=== PATIENT | female | born 1980 | race Caucasian/White ===

== ENCOUNTER → 2017-03-17 | Outpatient (CLI) | payer OTHER | LOC: FIMAGING 09:18 | PROVIDERS: ATTEND Advanced Practice Midwife | DX: O09.511 Supervision of elderly primigravida, first trimester (principal); Z3A.11 11 weeks gestation of pregnancy ==

== ENCOUNTER → 2017-06-05 | Outpatient (CLI) | payer OTHER | LOC: FIMAGING 07:43 | PROVIDERS: ATTEND Advanced Practice Midwife | DX: O36.5920 Maternal care for other known or suspected poor fetal growth, second trimester, not applicable or unspecified (principal); Z3A.23 23 weeks gestation of pregnancy; O26.892 Other specified pregnancy related conditions, second trimester; M02.30 Reiter's disease, unspecified site ==

== ENCOUNTER → 2017-06-24 | Outpatient (CLI) | payer OTHER | LOC: FIMAGING 09:08 | PROVIDERS: ATTEND Advanced Practice Midwife | DX: O36.5920 Maternal care for other known or suspected poor fetal growth, second trimester, not applicable or unspecified (principal); O26.892 Other specified pregnancy related conditions, second trimester; M47.9 Spondylosis, unspecified; M19.90 Unspecified osteoarthritis, unspecified site; Z3A.26 26 weeks gestation of pregnancy ==

== ENCOUNTER 2017-09-16 19:09 | Inpatient (IN) | payer OTHER ==
--- NOTE | 2017-09-16 21:20 | PDGENHP ---
History and Physical History and Physical: CARE: [facility], [place] HPI: Patient is a 37 yo who presents to L&D with complaints for IOL 2/2 symptomatic cholestasis with bile acids level 11.4. She has also been followed for IUGR - last growth US at 36 weeks was 6% with normal dopplers. Reports good activity - denies cntx/LOF/VB. EDC: 09/28/17 which is based on LMP: 12/22/16 which is known and consistent with Ultrasound at 7 weeks. Her is complicated by: - AMA - IUGR - Reactive arthritis/spondylo-arthropathy -followed by rheumatology (stopped Cimzia at 30 weeks) - Cholestasis Review of Systems: Constitutional: Denies any fever, chills, or fatigue HEENT: denies any visual changes, difficulty swallowing, hearing loss Cardiovascular: Denies any chest pain, palpitations, leg swelling Respiratory: denies any cough, wheezing, or shortness of breathe GI: Denies any nausea, vomiting, diarrhea, constipation : denies any dysuria, urgency, frequency, vaginal bleeding Musculoskeletal: denies any muscle or bone pain Skin: denies any rashes Neuro: denies any headache, seizures, lightheadedness, dizziness, or loss of consciousness Psychiatric: denies any depression, anxiety, or SI/HI thoughts HISTORY: Previous OB history: none Past medical history: reactive arthritis/spondylo-arthropathy, Past surgical history: non-contributory Medications: PNV Allergies (list reaction): NKDA LABS: Rh: O pos ABS: Neg Rubella: Immune HbsAg: NR HIV: NR VDRL: NR 1hr: 90 GC: Neg Chlamydia: Neg Pap: Normal GBS: neg BMI: (prepreg) 27 PHYSICAL EXAM: Constitutional: WN, A&Ox3 HEENT: normocephalic atraumatic, supple Heart: RRR, no murmur Chest: CTA-B Abdomen: Soft, nontender, gravid SVE: ft/50/-3 Extremities: sml pedal edema, negative anastasiia's sign Neuro: grossly normal Psych: normal affect assessment: Reassuring FHTs, baseline 135, +accels, no decels, moderate variability Contractions: toco irregular mild contractions Assessment: 1) 37 yo G 1 P 0 with IUP@ 38.2 weeks ega 2) IOL for cholestasis 3) GBS neg 4) Cat 1 FHR tracing 5) BPs since admission 130s/80s - denies headaches, visual changes, epigastric pain or increased pedal edema Plan: 1) Admit to L&D 2) Will place Cook catheter and plan for pitocin in AM 3) Pain relief as patient desires 4) Will check PIH labs due to elevated BPs 5) Continuous EFM
[2017-09-16] MEDS ORDERED: EPSOM SALT 454 GM TP PRN (21:33)
[2017-09-16] MEDS ORDERED: MISOPROSTOL 200 MCG TAB PO PRN (21:33)
[2017-09-16] MEDS ORDERED: IBUPROFEN 600 MG TAB PO PRN (21:33)
[2017-09-16] MEDS ORDERED: LIDOCAINE 1% 300 MG/30 ML SDV SC PRN (21:33)
[2017-09-16] MEDS ORDERED: TERBUTALINE SULFATE 1 MG/ML VIAL IV PRN (21:33)
[2017-09-16] MEDS ORDERED: LR 1,000 ML IV PRN (21:33)
[2017-09-16] MEDS ORDERED: OLIVE OIL 118 ML BTL MISC PRN (21:33)
[2017-09-16] MEDS ORDERED: AMMONIA AROMATIC 1 EACH AMP IH PRN (21:33)
[2017-09-16] MEDS ORDERED: ZOLPIDEM TARTRATE 5 MG TAB PO PRN (21:38)
[2017-09-16] MEDS ORDERED: hydrOXYzine HCL 50 MG TAB PO PRN (21:39)
[2017-09-16 23:38] LABS: PLATELET COUNT 303 10^3/uL (150-400)
[2017-09-17] MEDS ORDERED: ONDANSETRON 4 MG/2 ML VIAL IVP PRN
[2017-09-17] MEDS ORDERED: LR 500 ML IV PRN (04:11)
[2017-09-17] MEDS ORDERED: OXYTOCIN/RINGERS LACTATE 500 ML IV SCH (04:30)
[2017-09-17] MEDS ORDERED: LIDOCAINE 1% 300 MG/30 ML SDV ONE (08:10)
[2017-09-17] MEDS ORDERED: MISOPROSTOL 200 MCG TAB ONE (08:11)
[2017-09-17] MEDS ORDERED: AMMONIA AROMATIC 1 EACH AMP IH ONE (08:11)
[2017-09-17] MEDS ORDERED: OXYTOCIN 10 UNIT/ML VIAL ONE (08:11)
[2017-09-17] MEDS ORDERED: TERBUTALINE SULFATE 1 MG/ML VIAL ONE (08:11)
[2017-09-17] MEDS ORDERED: OLIVE OIL 118 ML BTL ONE (08:11)
[2017-09-17] MEDS ORDERED: fentaNYL 100 MCG/2 ML INJ ONE (10:49)
[2017-09-17] MEDS ORDERED: PHENYLEPHRINE HCL 100 MCG/ML SYR ONE (10:49)
[2017-09-17] MEDS ORDERED: BUPIVACAINE 0.25% 30 ML SDV ONE (10:49)
--- NOTE | 2017-09-17 12:05 | OBPROG ---
Labor Progress Note Assessment/Plan: Assessment: g1 at 38 3/7 weeks with gestational hypertension and cholestasis of status reassuring Plan: epidural then arom 09/17/17 12:04 Subjective/Intrapartum Course: 09/17/17 12:03 doing well. slept well overnight. having menstrual like cramping. pitocin is at 12. gentle traction applied to catheter and bulb came out. sve 380/-2. discussed management options. patient plans on epidural. will get soon then AROM. status reassuring. Objective: 09/16/17 23:20 09/16/17 23:20 Patient ABO/Rh O POSITIVE 09/16/17 23:20 Uric Acid 4.5 mg/dL (2.5-6.8) 09/16/17 23:20 Total Bilirubin 0.4 mg/dL (0.1-1.4) 09/16/17 23:20 Conjugated Bilirubin 0.2 mg/dL (0.0-0.5) 09/16/17 23:20 Unconjugated Bilirubin 0.2 mg/dL (0.0-1.1) 09/16/17 23:20 AST 17 IU/L (14-46) 09/16/17 23:20 ALT 23 IU/L (9-52) 09/16/17 23:20 Lactate Dehydrogenase 406 IU/L (313-618) 09/16/17 23:20 - SVE Dilation (cm): 3 Effacement (%): 80 Station: -2 Membranes: Intact - Contraction Pattern Assessment Current Contraction Pattern: Regular - FHR Assessment Gonzales FHR Pattern Variability: Moderate FHR Category: 1 Oxytocin Orders Assessment - Pre-Induction/Augmentation Assessment Gestational Age: 38 week(s) and 3 day(s) ICD10 Worksheet Patient Problems: Problems Problem Status Onset Cholestasis during Acute Gestational hypertension Acute
[2017-09-17] MEDS ORDERED: PHENYLEPHRINE HCL 100 MCG/ML SYR IVP PRN (12:13)
--- NOTE | 2017-09-17 12:18 | PREANESOB ---
Obstetric Pre-Anesthesia Info - General Info Proposed Procedure: Labor and delivery with pitocin. : 1 Para: 0 LAVERN: 09/28/17 Gestational Age: 38 week(s) and 3 day(s) - Info Status: Full Term Monitors: External FHR Baseline (bpm): 130 FHR Pattern: Reassuring - Labor Status Cervical Dilation per last OB SVE: 3 Station per last OB SVE: -2 Pitocin: In Use Indications for Labor Analgesia: Induction of Labor, Pain Control Labor Epidural: Proposed (Cholestasis and IUGR.) Anesthesia ROS: Prior general anesthesia. Allergies/Adverse Reactions: Allergy/AdvReac Type Severity Reaction Status Date / Time No Known Allergies Allergy Unverified 09/16/17 19:57 Visit Medications: Generic Name Dose Route Start Last Admin Trade Name Freq PRN Reason Stop Dose Admin Ammonia (Aromatic Spirit) 1 each 09/16/17 21:33 Ammonia Aromatic IH 09/26/17 21:32 ONCE PRN Fainting Hydroxyzine HCl 50 mg 09/16/17 21:39 Hydroxyzine Hcl PO 03/15/18 21:38 Q6HRS PRN Sleep/Insomnia Lactated Ringer's 1,000 mls @ 0 mls/hr 09/16/17 21:33 09/17/17 06:21 Lr IV 09/17/17 21:32 1,000 mls PRN PRN Administration SEE PROTOCOL CONDITIONS Protocol Per Protocol Lactated Ringer's 500 mls @ 500 mls/hr 09/17/17 04:11 Lr IV 09/18/17 04:11 PRN PRN Maternal Hypotension Oxytocin/Lactated Ringer's 500 mls @ 0 mls/hr 09/17/17 04:30 09/17/17 06:21 Pitocin 30 Units/Lr (Premix) IV 03/16/18 04:29 500 mls CONT MACARIO Administration Protocol Per Protocol Ibuprofen 600 mg 09/16/17 21:33 Motrin PO ONCE PRN post , pain Lidocaine HCl 300 mg 09/16/17 21:33 Lidocaine Hcl 1% SC 03/15/18 21:32 ONCE PRN episiotomy Magnesium Sulfate 454 gm 09/16/17 21:33 Epsom Salt TP 03/15/18 21:32 Q1H PRN perineal discomfort Misoprostol 800 - 1,000 mcg 09/16/17 21:33 Cytotec PO 03/15/18 21:32 ONCE PRN Vaginal Atony/Bleeding [place] Oil 118 ml 09/16/17 21:33 Sweet Oil MISC 03/15/18 21:32 ONCE PRN perineal massage Ondansetron HCl 4 mg 09/17/17 00:00 Zofran IVP 03/16/18 00:00 Q6 PRN Nausea/Vomiting, Can't Take PO Terbutaline Sulfate 0.25 mg 09/16/17 21:33 Brethine IV 03/15/18 21:32 ONCE PRN Tachysystole Zolpidem Tartrate 5 mg 09/16/17 21:38 Ambien PO 03/15/18 21:37 HS PRN Sleep/Insomnia Discontinued Medications Generic Name Dose Route Start Last Admin Trade Name Bennett PRN Reason Stop Dose Admin Ammonia (Aromatic Spirit) Confirm 09/17/17 08:11 Ammonia Aromatic Administered 09/17/17 08:12 Dose 1 each IH .STK-MED ONE Bupivacaine HCl Confirm 09/17/17 10:49 Sensorcaine 0.25% Sdv Administered 09/17/17 10:50 Dose 30 ml .ROUTE .STK-MED ONE Fentanyl Confirm 09/17/17 10:49 Sublimaze Administered 09/17/17 10:50 Dose 100 mcg .ROUTE .STK-MED ONE Lidocaine HCl Confirm 09/17/17 08:10 Lidocaine Hcl 1% Administered 09/17/17 08:11 Dose 300 mg .ROUTE .STK-MED ONE Misoprostol Confirm 09/17/17 08:11 Cytotec Administered 09/17/17 08:12 Dose 1,000 mcg .ROUTE .STK-MED ONE [place] Oil Confirm 09/17/17 08:11 Sweet Oil Administered 09/17/17 08:12 Dose 118 ml .ROUTE .STK-MED ONE Oxytocin Confirm 09/17/17 08:11 Pitocin Administered 09/17/17 08:12 Dose 40 unit .ROUTE .STK-MED ONE Phenylephrine HCl Confirm 09/17/17 10:49 Neosynephrine Administered 09/17/17 10:50 Dose 1,000 mcg .ROUTE .STK-MED ONE Terbutaline Sulfate Confirm 09/17/17 08:11 Brethine Administered 09/17/17 08:12 Dose 1 mg .ROUTE .STK-MED ONE - Anesthesia History Response to Local Anesthetics: Normal Anesthesia & Operative History: No Prior Problems Family Anesthesia History: Negative - Social History Substance Use/Abuse: Denies - Vital Signs Blood Pressure: 143/85 Heart Rate: 82 Height/Weight (Nursing): Height 168 cm Weight 92.079 kg - Focused Exam Neck exam: FROM Mallampati Score: Class 1 Mouth exam: normal dental/mouth exam Pulmonary: no respiratory distress Cardiovascular: regular rate and rhythym Labs: 09/16/17 23:20 09/16/17 23:20 Patient ABO/Rh O POSITIVE 09/16/17 23:20 Uric Acid 4.5 mg/dL (2.5-6.8) 09/16/17 23:20 Total Bilirubin 0.4 mg/dL (0.1-1.4) 09/16/17 23:20 Conjugated Bilirubin 0.2 mg/dL (0.0-0.5) 09/16/17 23:20 Unconjugated Bilirubin 0.2 mg/dL (0.0-1.1) 09/16/17 23:20 AST 17 IU/L (14-46) 09/16/17 23:20 ALT 23 IU/L (9-52) 09/16/17 23:20 Lactate Dehydrogenase 406 IU/L (313-618) 09/16/17 23:20 - Plan Anesthetic Plan: TOM Consent Signed and on Chart: Yes Patient/Guardian Understands and Agrees to Plan: Yes Urgent/Emergent Case: Claudiajayesh montanojesu completed preop but documented later for safe timely pt care
--- NOTE | 2017-09-17 12:19 | POSTANESTH ---
Post Anesthetic Evaluation Cardiovascular Status: Normal, Stable Respiratory Status: Normal, Stable, Similar to Pre-op Cond. Level of Consciousness/Mental Status: Can Participate in Eval, Alert and Oriented Pain Control: Adequate, Prn Tx Ordered Nausea/Vomiting Control: Adequate, Prn Tx Ordered Complications Possibly Related to Anesthesia: None Noted (BP stable after phenylephrine.)
--- NOTE | 2017-09-17 12:23 | OBPROG ---
Labor Progress Note Assessment/Plan: Assessment: g1 at 38 3/7 weeks with gestational hypertension and cholestasis of status reassuring Plan: epidural then arom 09/17/17 12:04 Subjective/Intrapartum Course: 09/17/17 12:03 doing well. slept well overnight. having menstrual like cramping. pitocin is at 12. gentle traction applied to catheter and bulb came out. sve 3/80/-2. discussed management options. patient plans on epidural. will get soon then AROM. status reassuring. 09/17/17 12:22 patient comfortable with epidural. AROM. small amount of clear fluid. IUPC placed without difficulty. patient still anxious exams will hurt but tolerated exam. status reassuring. Objective: 09/16/17 23:20 09/16/17 23:20 Patient ABO/Rh O POSITIVE 09/16/17 23:20 Uric Acid 4.5 mg/dL (2.5-6.8) 09/16/17 23:20 Total Bilirubin 0.4 mg/dL (0.1-1.4) 09/16/17 23:20 Conjugated Bilirubin 0.2 mg/dL (0.0-0.5) 09/16/17 23:20 Unconjugated Bilirubin 0.2 mg/dL (0.0-1.1) 09/16/17 23:20 AST 17 IU/L (14-46) 09/16/17 23:20 ALT 23 IU/L (9-52) 09/16/17 23:20 Lactate Dehydrogenase 406 IU/L (313-618) 09/16/17 23:20 Temp Pulse Resp BP Pulse Ox 82 143/85 H 09/17/17 12:18 09/17/17 12:18 - SVE Dilation (cm): 3 Effacement (%): 80 Station: -2 Membranes: AROM Amniotic Fluid Color: Clear - Contraction Pattern Assessment Current Contraction Pattern: Regular - FHR Assessment Twin A FHR Pattern Variability: Moderate FHR Category: 1 - Procedures Non-surgical Procedures: Amniotomy, IUPC Oxytocin Orders Assessment - Pre-Induction/Augmentation Assessment Gestational Age: 38 week(s) and 3 day(s) ICD10 Worksheet Patient Problems: Problems Problem Status Onset Cholestasis during Acute Gestational hypertension Acute
[2017-09-17] MEDS ORDERED: fentaNYL 2MCG/ML/BUP 0.1% RTU 100 ML EP SCH (12:30)
[2017-09-17] MEDS ORDERED: fentaNYL 200 MCG, BUPIVACAINE 0.5% 20 ML in NS 100 ML EP SCH (12:30)
[2017-09-17] MEDS ORDERED: LR 500 ML IV SCH (12:30)
[2017-09-17] MEDS ORDERED: LIDO/EPI 2% **for epidural** 20 ML SDV ONE (13:59)
--- NOTE | 2017-09-17 14:09 | OBPROG ---
Labor Progress Note Assessment/Plan: Assessment: g1 at 38 3/7 weeks with gestational hypertension and cholestasis of status reassuring Plan: epidural then arom 09/17/17 12:04 Subjective/Intrapartum Course: 09/17/17 12:03 doing well. slept well overnight. having menstrual like cramping. pitocin is at 12. gentle traction applied to catheter and bulb came out. sve 80/-2. discussed management options. patient plans on epidural. will get soon then AROM. status reassuring. 09/17/17 12:22 patient comfortable with epidural. AROM. small amount of clear fluid. IUPC placed without difficulty. patient still anxious exams will hurt but tolerated exam. status reassuring. 09/17/17 14:05 patient had been comfortable with epidural but is now having pain on the right side. has had periods of decreased variability and early decelerations. good scalp stimulation. pitocin is at [address] will continue to have close observation. will start repositioning patient once she is more comfortable. Objective: 09/16/17 23:20 09/16/17 23:20 Patient ABO/Rh O POSITIVE 09/16/17 23:20 Uric Acid 4.5 mg/dL (2.5-6.8) 09/16/17 23:20 Total Bilirubin 0.4 mg/dL (0.1-1.4) 09/16/17 23:20 Conjugated Bilirubin 0.2 mg/dL (0.0-0.5) 09/16/17 23:20 Unconjugated Bilirubin 0.2 mg/dL (0.0-1.1) 09/16/17 23:20 AST 17 IU/L (14-46) 09/16/17 23:20 ALT 23 IU/L (9-52) 09/16/17 23:20 Lactate Dehydrogenase 406 IU/L (313-618) 09/16/17 23:20 Temp Pulse Resp BP Pulse Ox 82 143/85 H 09/17/17 12:18 09/17/17 12:18 - SVE Dilation (cm): 4 Effacement (%): 80 Station: -2 Membranes: AROM Amniotic Fluid Color: Clear - Contraction Pattern Assessment Current Contraction Pattern: Regular - FHR Assessment Gonzales FHR Pattern Variability: Moderate FHR Category: 1 - Procedures Non-surgical Procedures: Amniotomy, IUPC Oxytocin Orders Assessment - Pre-Induction/Augmentation Assessment Gestational Age: 38 week(s) and 3 day(s) ICD10 Worksheet Patient Problems: Problems Problem Status Onset Cholestasis during Acute Gestational hypertension Acute
--- NOTE | 2017-09-17 17:33 | OBPROG ---
Labor Progress Note Assessment/Plan: Assessment: g1 at 38 3/7 weeks with gestational hypertension and cholestasis of status reassuring Plan: epidural then arom 09/17/17 12:04 Subjective/Intrapartum Course: 09/17/17 12:03 doing well. slept well overnight. having menstrual like cramping. pitocin is at 12. gentle traction applied to catheter and bulb came out. sve 380/-2. discussed management options. patient plans on epidural. will get soon then AROM. status reassuring. 09/17/17 12:22 patient comfortable with epidural. AROM. small amount of clear fluid. IUPC placed without difficulty. patient still anxious exams will hurt but tolerated exam. status reassuring. 09/17/17 14:05 patient had been comfortable with epidural but is now having pain on the right side. has had periods of decreased variability and early decelerations. good scalp stimulation. pitocin is at [address] will continue to have close observation. will start repositioning patient once she is more comfortable. 09/17/17 17:28 patient comfortable. has been in multiple positions. sve - complete and plus 2. status reassuring. will begin pushing Objective: 09/16/17 23:20 09/16/17 23:20 Patient ABO/Rh O POSITIVE 09/16/17 23:20 Uric Acid 4.5 mg/dL (2.5-6.8) 09/16/17 23:20 Total Bilirubin 0.4 mg/dL (0.1-1.4) 09/16/17 23:20 Conjugated Bilirubin 0.2 mg/dL (0.0-0.5) 09/16/17 23:20 Unconjugated Bilirubin 0.2 mg/dL (0.0-1.1) 09/16/17 23:20 AST 17 IU/L (14-46) 09/16/17 23:20 ALT 23 IU/L (9-52) 09/16/17 23:20 Lactate Dehydrogenase 406 IU/L (313-618) 09/16/17 23:20 Temp Pulse Resp BP Pulse Ox 82 143/85 H 09/17/17 12:18 09/17/17 12:18 - SVE Membranes: AROM Amniotic Fluid Color: Clear - Contraction Pattern Assessment Current Contraction Pattern: Regular - Procedures Non-surgical Procedures: Amniotomy, IUPC - AP Antepartum Course: 09/17/17 17:29 initiated care at [facility] at 10 weeks. edc by lmp not consistent with 7 week ultrasound. history of rheumatic/reactive arthritis. on cimzia until 30 weeks. negative innatal testing and first trimester ultrasound. growth ultrasound at 36 weeks - efw 6% with normal do[pplers. developed cholestasis of and gestational hypertension at 38 weeks so brought in for induction. cook catheter placed. Oxytocin Orders Assessment - Pre-Induction/Augmentation Assessment Gestational Age: 38 week(s) and 3 day(s) ICD10 Worksheet Patient Problems: Problems Problem Status Onset Cholestasis during Acute Gestational hypertension Acute
[2017-09-17] MEDS ORDERED: HYDROCORTISONE 0.5% CREAM TP PRN (20:09)
[2017-09-17] MEDS ORDERED: HYDROCODONE/APAP 5/325 TAB PO PRN (20:09)
[2017-09-17] MEDS ORDERED: SIMETHICONE 80 MG TAB CHEW PO PRN (20:09)
--- NOTE | 2017-09-17 20:09 | OBDEL ---
Info Type: Vaginal Presentation at Delivery: Vertex L&D Analgesia/Anesthesia Type: Spinal GBS+: No Intrapartum Medications: Generic Name Dose Route Start Last Admin Trade Name Freq PRN Reason Stop Dose Admin Lactated Ringer's 1,000 mls @ 0 mls/hr 09/16/17 21:33 09/17/17 06:21 Lr IV 09/17/17 21:32 1,000 mls PRN PRN Administration SEE PROTOCOL CONDITIONS Protocol Per Protocol Oxytocin/Lactated Ringer's 500 mls @ 0 mls/hr 09/17/17 04:30 09/17/17 06:21 Pitocin 30 Units/Lr (Premix) IV 03/16/18 04:29 500 mls CONT MACARIO Administration Protocol Per Protocol Discontinued Medications Generic Name Dose Route Start Last Admin Trade Name Freq PRN Reason Stop Dose Admin Ibuprofen 600 mg 09/16/17 21:33 09/17/17 18:21 Motrin PO 600 mg ONCE PRN Administration post , pain - Hospital Course Intrapartum: 09/17/17 12:03 doing well. slept well overnight. having menstrual like cramping. pitocin is at 12. gentle traction applied to catheter and bulb came out. sve 3/80/-2. discussed management options. patient plans on epidural. will get soon then AROM. status reassuring. 09/17/17 12:22 patient comfortable with epidural. AROM. small amount of clear fluid. IUPC placed without difficulty. patient still anxious exams will hurt but tolerated exam. status reassuring. 09/17/17 14:05 patient had been comfortable with epidural but is now having pain on the right side. has had periods of decreased variability and early decelerations. good scalp stimulation. pitocin is at [address] will continue to have close observation. will start repositioning patient once she is more comfortable. 09/17/17 17:28 patient comfortable. has been in multiple positions. sve - complete and plus 2. status reassuring. will begin pushing Vaginal Delivery - Delivery Provider Delivery Physician/CNM: Maria Dolores Bansal - Labor and Delivery Onset of Contractions Date: 09/17/17 Onset of Contractions Time: 12:00 Onset of Contractions Type: Induced Rupture of Membranes Date: 09/17/17 Rupture of Membranes Time: 12:14 Rupture of Membranes Type: Artificial Amniotic Fluid Color: Clear Dilation Complete Date: 09/17/17 Dilation Complete Time: 17:25 Placenta Delivery Date: 09/17/17 Placenta Delivery Time: 17:58 Total Hours of Labor: 5 Non-surgical Procedures: Amniotomy, IUPC Laceration: 1st Degree Repair: 3-0 Vaginal Sponge Count Correct: Yes Vaginal Needle Count Correct: Yes Vaginal Sweep Performed: No - Medications Labor Augmentation/Induction Methods Used: Pitocin, Perales Bulb Labor Augmentation/Induction Indication: Other (Specify) (IUGR, cholestatis of ) [place] Data LAVERN: 09/28/17 Gestational Age: 38 week(s) and 3 day(s) Gonzales Delivery Date: 09/17/17 Delivery Time: 17:52 Sex of : Female Score (1 Min): 8 Score (5 Min): 9 ICD10 Worksheet Patient Problems: Problems Problem Status Onset Cholestasis during Acute Gestational hypertension Acute
[2017-09-18] MEDS: ACETAMINOPHEN 325 MG TAB PO SCH ×4 (00:12→19:18)
[2017-09-18] MEDS: IBUPROFEN 600 MG TAB PO SCH ×4 (02:30→20:06)
--- NOTE | 2017-09-18 09:54 | OBPP ---
Progress Note Assessment/Plan: Assessment: 37yoG1 s/p PPD#1 Reactive arthritis/spondylo-arthropathy -followed by rheumatology (stopped Cimzia at 30 weeks) Cholestasis Plan: routine PP care support PRN ambulate PRN anticipate d/c home tomorrow 09/18/17 10:28 09/18/17 10:32 Subjective/ Course: 09/18/17 10:30 Pt doing well, she is resting. She denies any heavy bleeding. She reports min pain. She is . She is ambulating and voiding without difficulty. Objective: 09/16/17 23:20 09/16/17 23:20 Patient ABO/Rh O POSITIVE 09/16/17 23:20 Uric Acid 4.5 mg/dL (2.5-6.8) 09/16/17 23:20 Total Bilirubin 0.4 mg/dL (0.1-1.4) 09/16/17 23:20 Conjugated Bilirubin 0.2 mg/dL (0.0-0.5) 09/16/17 23:20 Unconjugated Bilirubin 0.2 mg/dL (0.0-1.1) 09/16/17 23:20 AST 17 IU/L (14-46) 09/16/17 23:20 ALT 23 IU/L (9-52) 09/16/17 23:20 Lactate Dehydrogenase 406 IU/L (313-618) 09/16/17 23:20 Temp Pulse Resp BP Pulse Ox 36.3 C 67 16 110/68 94 09/18/17 02:46 09/18/17 02:46 09/18/17 02:46 09/18/17 02:46 09/18/17 02:46 Uterine Position/Fundal Height: Umbilicus -1, Midline Uterine Tone: Firm Physical Exam - Physical Exam General Appearance: WD/WN, alert, no apparent distress Neck: supple Respiratory: normal breath sounds Abdomen: non-tender, soft Skin: normal color, warm/dry Neuro/Psych: alert, normal mood/affect, oriented x 3
[2017-09-18] MEDS: DOCUSATE SODIUM 100 MG CAP PO PRN (20:34)
[2017-09-18 20:53] VITALS: BP 141/84
[2017-09-19] MEDS: IBUPROFEN 600 MG TAB PO SCH ×2 (01:53→10:03)
[2017-09-19] MEDS: DOCUSATE SODIUM 100 MG CAP PO PRN (10:04)
--- NOTE | 2017-09-19 11:08 | OBPP ---
Progress Note Assessment/Plan: Assessment: 1) s/p PPD #2 - pt is stable 2) Reactive arthritis/spondylo-arthropathy -followed by rheumatology (stopped Cimzia at 30 weeks) 3) Cholestasis - resolved Plan: Plan for d/c home today Instructions reviewed with pt No Rx given Cont PNV and Colace Pelvic rest RTC in 4 and 6 weeks for pp visit 09/19/17 11:04 Subjective/ Course: 09/18/17 10:30 Pt doing well, she is resting. She denies any heavy bleeding. She reports min pain. She is . She is ambulating and voiding without difficulty. 09/19/17 11:06 Pt seen and examined. She had a fall with baby this am at 0400 and hit her head. She is okay, denies any HAs and baby girl is fine. Mild cramping. Mod lochia. Pt is OOB, edouard regular diet, voiding and BM this am. BF with some difficulty-to work with prior to d/c home. Objective: 09/16/17 23:20 09/16/17 23:20 Patient ABO/Rh O POSITIVE 09/16/17 23:20 Uric Acid 4.5 mg/dL (2.5-6.8) 09/16/17 23:20 Total Bilirubin 0.4 mg/dL (0.1-1.4) 09/16/17 23:20 Conjugated Bilirubin 0.2 mg/dL (0.0-0.5) 09/16/17 23:20 Unconjugated Bilirubin 0.2 mg/dL (0.0-1.1) 09/16/17 23:20 AST 17 IU/L (14-46) 09/16/17 23:20 ALT 23 IU/L (9-52) 09/16/17 23:20 Lactate Dehydrogenase 406 IU/L (313-618) 09/16/17 23:20 Temp Pulse Resp BP Pulse Ox 36.4 C 62 20 141/84 H 97 09/18/17 20:00 09/18/17 20:00 09/18/17 20:00 09/18/17 20:00 09/18/17 20:00 Uterine Position/Fundal Height: Umbilicus -2 Uterine Tone: Firm Physical Exam - Physical Exam General Appearance: alert, no apparent distress, mild distress Respiratory: lungs clear, normal breath sounds Cardiac/Chest: regular rate, rhythm Abdomen: normal bowel sounds, non-tender, soft, flatus (+) Extremities: non-tender, normal inspection Skin: normal color, warm/dry Neuro/Psych: alert, normal mood/affect, oriented x 3
--- NOTE | 2017-09-19 11:09 | OBGCSDC ---
General Delivery Information - General Info : 1 Para: 1 Abortions: 0 Type: Vaginal L&D Analgesia/Anesthesia Type: Spinal Admission Date: 09/16/17 Labs: Patient ABO/Rh O POSITIVE 09/16/17 23:20 Hct 36.1 % (38.0-47.0) L 09/16/17 23:20 - Hospital Course Intrapartum: 09/17/17 12:03 doing well. slept well overnight. having menstrual like cramping. pitocin is at 12. gentle traction applied to catheter and bulb came out. sve 380/-2. discussed management options. patient plans on epidural. will get soon then AROM. status reassuring. : 09/18/17 10:30 Pt doing well, she is resting. She denies any heavy bleeding. She reports min pain. She is . She is ambulating and voiding without difficulty. 09/19/17 11:06 Pt seen and examined. She had a fall with baby this am at 0400 and hit her head. She is okay, denies any HAs and baby girl is fine. Mild cramping. Mod lochia. Pt is OOB, edouard regular diet, voiding and BM this am. BF with some difficulty-to work with prior to d/c home. Vaginal - Delivery Provider Delivery Physician/CNM: Maria Dolores Bansal - Diagnosis Labor: Induced Rupture of Membranes Type: Artificial Amniotic Fluid Color: Clear Laceration: 1st Degree Repair: 3-0 - Procedures Non-surgical Procedures: Amniotomy, IUPC - Delivery Non-surgical Procedures: Amniotomy, IUPC Data LAVERN: 09/28/17 Gestational Age: 38 week(s) and 5 day(s) Gonzales Delivery Date: 09/17/17 Delivery Time: 17:52 Sex of : Female Weight (gm): 2646 g Score (1 Min): 8 Score (5 Min): 9 Discharge Information - Discharge Information Condition: Good Instruction/Follow Up: Four Weeks, Six Weeks
[2017-09-19] MEDS: ACETAMINOPHEN 325 MG TAB PO SCH ×2 (12:48)
== END 2017-09-19 15:00 | disposition home or self-care (01) | DRG 775 ==
LOC: FLD 19:09 → FOB 09-17 23:17
PROVIDERS: ADMIT Advanced Practice Midwife; ATTEND Advanced Practice Midwife
DX: O26.62 Liver and biliary tract disorders in childbirth (principal); K83.1 Obstruction of bile duct; Z37.0 Single live birth; Z3A.38 38 weeks gestation of pregnancy; O70.0 First degree perineal laceration during delivery; O13.9 Gestational [pregnancy-induced] hypertension without significant proteinuria, unspecified trimester; O36.5930 Maternal care for other known or suspected poor fetal growth, third trimester, not applicable or unspecified
CPT/HCPCS: J2370; J2405; J2590; J3010; J3105